=== PATIENT | male | born 1960 | race African-American/Black ===

== ENCOUNTER 2019-04-19 12:05 | Outpatient (CLI) | payer OTHER | END 2019-04-19 13:30 | LOC: OUT 12:05 | PROVIDERS: ATTEND Podiatrist Foot & Ankle Surgery | DX: E66.9 Obesity, unspecified (principal); Z68.42 Body mass index [BMI] 45.0-49.9, adult; E66.3 Overweight | CPT/HCPCS: 97802 ==